=== PATIENT | male | born 1955 | race Caucasian/White ===

== ENCOUNTER → 2020-08-16 | Outpatient (CLI) | payer MEDICARE, BC ==
--- NOTE | 2020-08-16 15:15 | RAD ---
EXAM: HIP LEFT 2V WITH PELVIS 08/16/2020 12:00 AM CLINICAL INDICATION:Hip pain after fall, bone graft taken centimeters. COMPARISON:CT abdomen pelvis 06/23/2014 TECHNIQUE:AP view the pelvis and AP and frog-leg lateral views of the left hip FINDINGS:No acute fracture or malalignment. Left hip joint space maintained. 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 This was similar appearance on CT abdomen and pelvis 06/23/2014. No pubic symphysis or sacroiliac joint widening. The right hip is unremarkable. There is lumbosacral fusion hardware. IMPRESSION: 1. No acute osseous abnormality. 2. Grossly stable appearance of sclerotic left iliac wing lesion. Correlate with site of bone graft harvesting. Electronically signed by: Nelli Baker MD (08/16/2020 3:12 PM) [id number]
== END | disposition home or self-care (01) ==
LOC: PMG 10:21
PROVIDERS: ATTEND Family Medicine
DX: M25.552 Pain in left hip (principal)
CPT/HCPCS: 73502